=== PATIENT | male | born 1995 | race Hispanic/Latino ===

== ENCOUNTER 2018-12-13 19:48 | Emergency (ER) | payer OTHER ==
[~2018-12-13] VITALS: Ht 182.9 cm; Wt 113.4 kg
--- OUTSIDE RECORDS SUMMARY | 2018-12-13 19:51 | XMS REPORT | Continuity of Care Document ---
Author Author [facility] Interface Address Unknown Phone Unavailable Problems Problem Status Onset Date Classification Date Reported Comments Source Viral Gastroenteritis 01/30/2018 Problem 01/30/2018 [facility] Influenza-like Symptoms 01/30/2018 Problem 01/30/2018 [facility] Headache 01/30/2018 Problem 01/30/2018 [facility] Viral gastroenteritis 01/30/2018 Diagnosis 01/30/2018 [facility] Influenza-like symptoms 01/30/2018 Diagnosis 01/30/2018 [facility] Body mass index 30+ - obesity 01/30/2018 Diagnosis 01/30/2018 [facility] Viral upper respiratory tract infection 12/05/2017 Diagnosis 12/05/2017 [facility] Throat symptom 12/05/2017 Diagnosis 12/05/2017 [facility] Acute Sinusitis Problem 12/05/2017 [facility] Allergic Rhinitis Problem 12/05/2017 [facility] Gastroenteritis Problem 12/05/2017 [facility] Medications Medication Details Route Status Patient Instructions Ordering Provider Order Date Source Naproxen 500 MG Delayed Release Oral Tablet [Naprosyn] EC-Naprosyn 500 mg tablet,delayed release Take 1 tablet twice a day by oral route as needed for 7 days. Active [facility] Ondansetron 8 MG Oral Tablet ondansetron HCl 8 mg tablet Take 1 tablet every 8 hours by oral route as needed for 2 days. Active [facility] Brompheniramine Maleate 0.4 MG/ML / Dextromethorphan Hydrobromide 2 MG/ML / Pseudoephedrine Hydrochloride 6 MG/ML Oral Solution [Bromfed DM] Bromfed DM 2 mg-30 mg-10 mg/5 mL syrup Take 10 mL every 4-6 hours by oral route as needed for 6 days. Active [facility] Allergies, Adverse Reactions, Alerts Substance Category Reaction Severity Reaction type Status Date Reported Comments Source Immunizations Immunization Date Given Site Status Last Updated Comments Source meningococcal MCV4P 06/21/2014 completed [facility] Results Order Name Results Value Reference Range Date Interpretation Comments Source Influenza A negative 01/30/2018 [facility] Influenza B negative 01/30/2018 [facility] RESULT negative 12/05/2017 [facility] SWAB LOCATION Left and Right tonsillar pillars 12/05/2017 [facility] Influenza A negative 12/05/2017 [facility] Influenza B negative 12/05/2017 [facility] Vital Signs Vital Sign Value Date Comments Source Diastolic (mm Hg) 72 01/30/2018 [facility] Height 73 01/30/2018 [facility] Systolic (mm Hg) 118 01/30/2018 [facility] Weight 250 01/30/2018 [facility] Diastolic (mm Hg) 72 12/05/2017 [facility] Height 73 12/05/2017 [facility] Systolic (mm Hg) 114 12/05/2017 [facility] Weight 240 12/05/2017 [facility] Encounters Location Location Details Encounter Type Encounter Number Reason For Visit Attending Provider ADM Date DC Date Status Source [place] - [facility] - [id number] Diana-C: [address] [place] [address], Ph. [id number] Ita Valle 12/05/2017 [facility] [place] [facility] - [id number] DianaP-C: [address] [place] [address], Ph. [id number] Ita Valle 01/30/2018 [facility] Procedures Procedure Code Date Perfomer Comments Source
--- OUTSIDE RECORDS SUMMARY | 2018-12-13 19:51 | XMS REPORT | Encounter Summary ---
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 Viral upper respiratory tract infection Bromfed DM 2 mg-30 mg-10 mg/5 mL syrup rapid flu (A+B) 2. Throat symptom rapid strep group A, throat Discussion Note Pt is in NAD; Verbalizes understanding of all instructions with no questions at this time. Patient educational handouts: No information available. Plan of Care Patient Instructions Take Bromfed DM for cough as directed. Take fluticasone as needed for nasal and ear congestion. [place] one spray in each nostril twice a day. Take a warm, steamy shower, blow your nose thereafter, and spray in each nostril. Tilt your head up for about 10 seconds and breath through your mouth. Do not sniff or snort the medication in or else the medication will go to your throat and not be absorbed appropriately. Alternate with Ibuprofen and acetaminophen every 4hrs as needed for pain/fever/headache. Proper hydration and rest. Return to work/school if free of fever for 24-hrs. Do not share any utensils/cups, no kissing, recommend hand washing after coughing/sneezing/blowing nose and cover face when you do so. Take medications as prescribed. Return to clinic or follow up with your PCP within 2-3 days if symptoms worsen as discussed. Reminders Provider Appointments None recorded. Lab Rapid Flu (A+B) 12/05/2017 [facility] Rapid Strep Group a, Throat 12/05/2017 [facility] Referral None recorded. Procedures None recorded. Surgeries None recorded. Imaging None recorded. Medications Name Start Date Bromfed DM 2 mg-30 mg-10 mg/5 mL syrup Take 10 mL every 4-6 hours by oral route as needed for 6 days. Medications Administered None recorded. Vitals Height Weight BMI Blood Pressure 6 ft 1 in 240 lbs 31.7 kg/m2 114/72 mm[Hg] Lab Results Date Name Specimen Result Interpretation Description Value Range Status Address Rapid Strep Group a, Throat Result negative [facility]: [facility] Swab Location Left and Right tonsillar pillars [facility]: [facility] Rapid Flu (A+B) Influenza a negative [facility]: [facility] Influenza B negative [facility]: [facility] Allergies Code Code System Name Reaction Severity Status Onset NKDA Problems Name Status Onset Date Source Acute Sinusitis Active Encounter Allergic Rhinitis Active Encounter Gastroenteritis Active Encounter Procedures None recorded. Vaccine List Vaccine Type meningococcal MCV4P 06/21/2014 Social History Smoking Status Never Smoker Past Encounters 12/05/2017 Viral Upper Respiratory Tract Infection; Throat Symptom Ita Valle [facility]: [address] [place] [address], Ph. History of Present Illness [id number]-Xsw Reported By: Patient HPI: Quality: symptoms worse during the day. Duration: 4 days. Severity: subjective temperature. Context: no ill contacts, no tick/insect bites, no recent travel, no new medications. Associated Symptoms: no fever/chills, no headache, no muscle aches, no rash, no lethargy, cough, nasal passage blockage (stuffiness), nasal discharge; scratchy throat. Modifying Factors nothing gives relief Review of Systems:ROS as noted in the HPI Review of Systems Basic Reported By: Patient Physical Exam Adult Basic, 14-21 Yr Male, Adult Female Complete, Adult Male Complete Reported By: Patient Constitutional: General Appearance: healthy-appearing, well-nourished, well-developed. Level of Distress: NAD. Ambulation: ambulating normally Psychiatric: Mental Status: active and alert. Orientation: to time, to place, to person Avz-Npbq-Vnmzo-Throat: Ears: no lesions on external ear, no outer ear tenderness, EACs clear, TMs clear. Hearing: no hearing loss. Nose: no lesions on external nose, nares patent, no septal deviation, nasal passages clear, no sinus tenderness, nasal discharge--rhinorrhea, post nasal drip. Lips, Teeth, and Gums: no mouth or lip ulcers, no bleeding gums, normal dentition. Oropharynx: moist mucous membranes, no erythema, no exudates, tonsils not enlarged Neck: Lymph Nodes: no cervical LAD Lungs: Respiratory effort: no dyspnea, no tachypnea, no use of accessory muscles, no intercostal retractions. Auscultation: breath sounds normal Cardiovascular: Heart Auscultation: RRR, no murmurs Neurologic: Gait and Station: normal gait, normal station
--- OUTSIDE RECORDS SUMMARY | 2018-12-13 19:51 | XMS REPORT | Encounter Summary ---
Author Organization Unknown Address [address] [place] [address] Phone [phone] Care Team Providers Care Expressive Therapist Name Role Phone Suzie Hutson 3 [phone] Reason for Visit Medical Complaint Instructions 1. Viral gastroenteritis ondansetron HCl 8 mg tablet 2. Influenza-like symptoms rapid flu (A+B) 3. Headache headache: care instructions EC-Naprosyn 500 mg tablet,delayed release 4. Body mass index 30+ - obesity Discussion Note Pt is in NAD; Verbalizes understanding of all instructions with no questions at this time. Plan of Care Patient Instructions Stay hydrated with pedialyte or gatorade, eat a liquid diet for the first four hours. Stay away from fried and spicy foods until symptoms resolve. If you do experience improvement in your symptoms within the next four hours, advance yourself to a carbohydrate-rich diet such as white rice, white bread, and crackers. Within the next four hours thereafter, you can advance to lean meats such as chicken, fish, and turkey. Four hours thereafter if symptoms do improve, then advance to a regular diet. Take over the counter imodium for diarrhea as per package insert. Take ondansetron for nausea and vomiting as per package insert for headache. Follow up with your PCP within 2-3 should symptoms worsen as discussed. In case of an emergency call 911 or go to nearest ER. Recommend follow a low sodium/fat/carb diet and exercise 30-45 mins/d 3-4 days a week once symptoms resolve. Reminders Provider Appointments None recorded. Lab Rapid Flu (A+B) 01/30/2018 [facility] Referral None recorded. Procedures None recorded. Surgeries None recorded. Imaging None recorded. Medications Name Start Date EC-Naprosyn 500 mg tablet,delayed release Take 1 tablet twice a day by oral route as needed for 7 days. ondansetron HCl 8 mg tablet Take 1 tablet every 8 hours by oral route as needed for 2 days. Medications Administered None recorded. Vitals Height Weight BMI Blood Pressure 6 ft 1 in 250 lbs 33 kg/m2 118/72 mm[Hg] Lab Results Date Name Specimen Result Interpretation Description Value Range Status Address Rapid Flu (A+B) Influenza a negative [facility]: [facility] Influenza B negative [facility]: [facility] Allergies Code Code System Name Reaction Severity Status Onset NKDA Problems Name Status Onset Date Source Viral Gastroenteritis Active 01/30/2018 Influenza-like Symptoms Active 01/30/2018 Headache Active 01/30/2018 Procedures None recorded. Vaccine List Vaccine Type meningococcal MCV4P 06/21/2014 Social History Smoking Status Never Smoker Past Encounters 01/30/2018 Viral Gastroenteritis; Influenza-like Symptoms; Headache; Body Mass Index 30+ - Obesity Ita Valle, [facility]: [address] [place] [address], Ph. History of Present Illness Lsqxct-Tcofptgp-Celizkhq / Abdominal Pain Reported By: Patient HPI: Quality: watery, intermittent. Severity: moderate. Duration: present for < 1 week, symptoms last for how long?. Onset/Timing: worse with meals, gradual onset, 4-10 times a day. Context: no one else with similar symptoms, no recent camping, no recent picnic, no possible food sources, no recent travel. Alleviating factors: better with fasting. Aggravating factors: eating. Associated Symptoms: no abdominal pain, no excess gas, no fever/chills, no rash, no joint pain, no weight loss, no vomiting, no heartburn, no blood in stool, no mucus in stool, no black or tarry stools, no weakness, no nutrient deficiency, no feeling of fullness/mass in throat, no muscle aches, no bitter taste in the mouth, no difficulty swallowing (dysphagia), nausea, headache; body aches and watery diarrhea Headache Reported By: Patient HPI: Location: frontal. Quality: not the worst headache ever, similar to previous headaches. Severity: moderate, pain level 6/10. Duration: intermittent. Onset/Timing: gradual, still present. Context: not related to trauma. Modifying factors: rest; Has not taken any meds. Associated Symptoms: no fever/chills, no muscle aches, no vomiting, no sensitivity to light, tearing/watery eyes, no confusion, no slurred speech, no preceeding aura, no double vision, normal feeling/sensation, no motor paralysis, no dizziness, no sleep disturbances, no nosebleeds, no hoarseness, no sore throat, no hearing loss, headache, nausea; body aches and watery diarrhea Review of Systems:ROS as noted in the HPI Review of Systems Basic Reported By: Patient Physical Exam Adult Basic, 14-21 Yr Male, Adult Male Complete Reported By: Patient Constitutional: General Appearance: obese. Level of Distress: NAD. Ambulation: ambulating normally Psychiatric: Mental Status: active and alert. Orientation: to time, to place, to person Eyes: Lids and Conjunctivae: non-injected, no discharge, no pallor. Pupils: PERRLA, equal size, round, reactive to light. Corneas: grossly intact. EOM: EOMI, normal cover/uncover test. Lens: clear. Vision: peripheral vision grossly intact Igp-Zlpr-Jppqv-Throat: Ears: no lesions on external ear, no outer ear tenderness, EACs clear, TMs clear, TM mobility normal. Nose: no lesions on external nose, nares patent, no septal deviation, nasal passages clear, no sinus tenderness, no nasal discharge. Lips, Teeth, and Gums: no mouth or lip ulcers, no bleeding gums, normal dentition. Oropharynx: moist mucous membranes, no erythema, no exudates, tonsils not enlarged Neck: Neck: supple. Lymph Nodes: no cervical LAD Lungs: Respiratory effort: no dyspnea, no tachypnea, no use of accessory muscles, no intercostal retractions. Auscultation: breath sounds normal, good air movement Cardiovascular: Heart Auscultation: RRR, no murmurs Neurologic: Gait and Station: normal gait, normal station. Cranial Nerves: grossly intact. Sensation: grossly intact. Reflexes: deep tendon reflexes 2+ bilaterally throughout Abdomen: Palpation: non-distended, no guarding, no tenderness. Liver: non-tender, no hepatomegaly. Spleen: non-tender, no splenomegaly. Hernia: no palpable hernias. Bowel Sounds: high-pitched. Inspection and Palpation: soft, no rebound tenderness, no masses, no CVA tenderness
[2018-12-13] MEDS ORDERED: IBUPROFEN 600 MG TAB PO STA (19:55)
[2018-12-13] MEDS ORDERED: IBUPROFEN 200 MG TAB ONE (19:58)
[2018-12-13] MEDS ORDERED: IBUPROFEN 400 MG TAB ONE (20:01)
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
== END 2018-12-13 20:55 | disposition home or self-care (01) ==
LOC: ER 19:48
DX: S20.219A Contusion of unspecified front wall of thorax, initial encounter (principal); V43.52XA Car driver injured in collision with other type car in traffic accident, initial encounter; Y92.488 Other paved roadways as the place of occurrence of the external cause; L30.9 Dermatitis, unspecified; E66.9 Obesity, unspecified
CPT/HCPCS: 71046; 99283

== ENCOUNTER 2024-09-06 10:44 | Inpatient (IN) | payer OTHER ==
[2024-09-06] VITALS (8 sets, daily range): BP systolic 126–134; BP diastolic 67–79; PULSE 80–103; RESP 16–19; TEMP 97.7–98.4; O2SAT 98
[~2024-09-06] VITALS: Ht 182.9 cm; Wt 106.6 kg
[2024-09-06 11:18] LABS: BASOPHILS % 0.3 % (0.0-1.0); EOSINOPHILS # (AUTO) 0.1 (0.0-0.4); EOSINOPHILS % 0.3 % (0.0-6.0); HEMATOCRIT 49.6 % (38.2-49.6); LYMPHOCYTES % 20.3 % (18.0-39.1); MEAN CORPUSCULAR HEMOGLOBIN 30.5 pg (28-32); MEAN CORPUSCULAR HGB CONC 34.3 g/dL (31-35); MONOCYTES # (AUTO) 0.5 (0.2-0.8); MONOCYTES % 3.4 % (4.4-11.3); NEUTROPHILS # (AUTO) 11.1 (2.1-6.9); NEUTROPHILS % 75.4 % (38.7-80.0); PLATELET COUNT 273 x10e3/uL (140-360); RED BLOOD COUNT 5.57 x10e6/uL (4.3-5.7); RED CELL DISTRIBUTION WIDTH 12.4 % (11.7-14.4); WHITE BLOOD COUNT 14.73 x10e3/uL (4.8-10.8)
[2024-09-06 11:26] LABS: INR 0.94
[2024-09-06 11:27] LABS: PARTIAL THROMBOPLASTIN TIME 28.2 seconds (23.8-35.5)
[2024-09-06] MEDS: SODIUM CHLORIDE 0.9% 1000ML 1,000 ML IV STA (11:29)
[2024-09-06] MEDS: LORAZEPAM INJ 2 MG/ML VIAL IV ONE (11:30)
[2024-09-06] MEDS: DICYCLOMINE HCL 20 MG/2 ML VIAL IM ONE (11:30)
[2024-09-06] MEDS: ONDANSETRON HCL INJ 2MG/ML 2ML 2 MG/ML VIAL IV STA (11:30)
[2024-09-06 11:37] LABS: ALANINE AMINOTRANSFERASE 26 IU/L (0-55); ALBUMIN 4.6 g/dL (3.5-5.0); ALBUMIN/GLOBULIN RATIO 1.2 (0.8-2.0); ALKALINE PHOSPHATASE 77 IU/L (40-150); ANION GAP 23.3 mmol/L (8-16); BILIRUBIN,TOTAL 0.7 mg/dL (0.2-1.2); BLOOD UREA NITROGEN 17 mg/dL (7-26); BUN/CREATININE RATIO 17 (6-25); CALCIUM 9.8 mg/dL (8.4-10.2); CARBON DIOXIDE 14 mmol/L (22-29); CHLORIDE 105 mmol/L (98-107); CREATINE KINASE 101 IU/L (30-200); CREATININE, SERUM 0.98 mg/dL (0.72-1.25); EST GLOMERULAR FILTRATION RATE 108 ML/MIN (>=60); GLUCOSE 173 mg/dL (74-118); LIPASE 56 U/L (8-78); MAGNESIUM 2.2 MG/DL (1.3-2.1); SODIUM 139 mmol/L (136-145); TOTAL PROTEIN 8.3 g/dL (6.5-8.1)
[2024-09-06 11:38] LABS: POTASSIUM 3.3 mmol/L (3.5-5.1)
[2024-09-06 11:44] LABS: TROPONIN I < 0.001 ng/mL (0-0.300)
[2024-09-06] MEDS ORDERED: IOPAMIDOL 370 MG/ML 100 ML INFUS..BTL INJ ONE (11:44)
[2024-09-06 12:40] LABS: BILIRUBIN,URINE NEGATIVE (NEGATIVE); CLARITY,URINE CLEAR (CLEAR); COLOR,URINE YELLOW (YELLOW); GLUCOSE, URINE NEGATIVE (NEGATIVE); KETONES,URINE 1+ (NEGATIVE); LEUKOCYTE ESTERASE ,URINE NEGATIVE (NEGATIVE); NITRITE,URINE NEGATIVE (NEGATIVE); PH,URINE 5.5 (5 - 7); PROTEIN,URINE DIPSTICK NEGATIVE (NEGATIVE); URINE UROBILINOGEN 0.2 mg/dL (0.2 - 1)
[2024-09-06 12:42] LABS: BACTERIA,URINE FEW /HPF; EPITHELIAL CELLS,URINE FEW /LPF
[2024-09-06] MEDS ORDERED: PROMETHAZINE 12.5MG/ NACL 0.9% 12.5 MG/50 ML BAG IV PRN (13:15)
[2024-09-06] MEDS: METHYLPREDNISOLONE SOD SUCC 125 MG/2ML VIAL IV STA (13:19)
[2024-09-06] MEDS: SODIUM CHLORIDE 0.9% 1000ML 1,000 ML IV SCH (14:48)
[2024-09-06] MEDS ORDERED: RINVOQ30 MG (15:01)
[2024-09-06] MEDS ORDERED: [UNRECOGNIZED DRUG - OTHER] PO (15:01)
[2024-09-06] MEDS ORDERED: MECLIZINE HCL12.5 MG PO (15:01)
[2024-09-06] MEDS ORDERED: SERTRALINE HCL50 MG PO (15:01)
[2024-09-06] MEDS: ONDANSETRON HCL INJ 2MG/ML 2ML 2 MG/ML VIAL IV PRN (18:09)
[2024-09-06] MEDS: Morphine 4mg INJECTION 4 MG/ML INJ IV PRN (18:09)
[2024-09-07 05:44] LABS: BASOPHILS % 0.1 % (0.0-1.0); HEMATOCRIT 41.4 % (38.2-49.6); HEMOGLOBIN 13.8 g/dL (14.0-18.0); LYMPHOCYTES # (AUTO) 1.6 (1.0-3.2); LYMPHOCYTES % 14.1 % (18.0-39.1); MEAN CORPUSCULAR HEMOGLOBIN 30.7 pg (28-32); MEAN CORPUSCULAR HGB CONC 33.3 g/dL (31-35); MONOCYTES # (AUTO) 0.8 (0.2-0.8); MONOCYTES % 6.6 % (4.4-11.3); NEUTROPHILS # (AUTO) 8.9 (2.1-6.9); NEUTROPHILS % 78.8 % (38.7-80.0); PLATELET COUNT 184 x10e3/uL (140-360); RED CELL DISTRIBUTION WIDTH 12.8 % (11.7-14.4); WHITE BLOOD COUNT 11.35 x10e3/uL (4.8-10.8)
[2024-09-07 06:31] LABS: ALBUMIN 3.6 g/dL (3.5-5.0); ALBUMIN/GLOBULIN RATIO 1.1 (0.8-2.0); ANION GAP 12.1 mmol/L (8-16); BILIRUBIN,TOTAL 0.6 mg/dL (0.2-1.2); CALCIUM 8.6 mg/dL (8.4-10.2); CREATININE, SERUM 0.86 mg/dL (0.72-1.25); POTASSIUM 4.1 mmol/L (3.5-5.1); TOTAL PROTEIN 6.8 g/dL (6.5-8.1)
[2024-09-07] MEDS: PROMETHAZINE 12.5MG/ NACL 0.9% 12.5 MG/50 ML BAG IV ONE (07:32)
[2024-09-07 08:00] VITALS: BP 129/67; PULSE 80; RESP 18; TEMP 98.1; O2SAT 98
[2024-09-07 08:56] VITALS: BP 125/93; PULSE 73; RESP 20; TEMP 98.8; O2SAT 99
[2024-09-07 12:49] VITALS: BP 129/69; PULSE 51; RESP 20; TEMP 97.4; O2SAT 100
[2024-09-07] MEDS ORDERED: POLYETHYLENE GLYCOL 3350 17 GM PACK PO PRN (14:30)
[2024-09-07] MEDS ORDERED: ACETAMINOPHEN 325 MG TAB PO PRN (14:30)
[2024-09-07] MEDS ORDERED: HYDRALAZINE HCL 20 MG/ML VIAL IV PRN (14:30)
[2024-09-07] MEDS: DOCUSATE SODIUM 100 MG CAP PO SCH (15:36)
[2024-09-07 17:07] VITALS: BP 114/67; PULSE 67; RESP 18; TEMP 98.6; O2SAT 100
[2024-09-07] MEDS: SERTRALINE HCL 50 MG TAB PO SCH (17:55)
[2024-09-07 20:10] VITALS: PULSE 68; RESP 18; O2SAT 99
[2024-09-07] MEDS: MECLIZINE HCL 12.5 MG TAB PO SCH (20:38)
[2024-09-07 23:21] VITALS: BP 129/56; PULSE 65; RESP 18; TEMP 98.2; O2SAT 100
[2024-09-08] VITALS (8 sets, daily range): BP systolic 111–122; BP diastolic 55–72; PULSE 54–73; RESP 16–18; TEMP 96.7–98.4; O2SAT 97–100
[2024-09-08] MEDS: LEVOFLOXACIN 500MG/D5W 100ML 100 ML IV ONE (01:15)
[2024-09-08] MEDS: METOCLOPRAMIDE HCL 10 MG/2ML VIAL IV STA (02:39)
[2024-09-08 05:35] LABS: BASOPHILS % 0.4 % (0.0-1.0); EOSINOPHILS # (AUTO) 0.2 (0.0-0.4); EOSINOPHILS % 2.4 % (0.0-6.0); HEMATOCRIT 37.3 % (38.2-49.6); HEMOGLOBIN 12.6 g/dL (14.0-18.0); LYMPHOCYTES # (AUTO) 2.4 (1.0-3.2); LYMPHOCYTES % 33.1 % (18.0-39.1); MEAN CORPUSCULAR HEMOGLOBIN 31.2 pg (28-32); MEAN CORPUSCULAR HGB CONC 33.8 g/dL (31-35); MEAN CORPUSCULAR VOLUME 92.3 fL (81-99); MONOCYTES # (AUTO) 0.5 (0.2-0.8); MONOCYTES % 7.3 % (4.4-11.3); NEUTROPHILS % 56.7 % (38.7-80.0); PLATELET COUNT 154 x10e3/uL (140-360); RED BLOOD COUNT 4.04 x10e6/uL (4.3-5.7); RED CELL DISTRIBUTION WIDTH 13.1 % (11.7-14.4); WHITE BLOOD COUNT 7.12 x10e3/uL (4.8-10.8)
[2024-09-08] MEDS: METOCLOPRAMIDE HCL 10 MG/2ML VIAL IV SCH (05:44)
[2024-09-08 06:40] LABS: ALBUMIN 3.2 g/dL (3.5-5.0); ALBUMIN/GLOBULIN RATIO 1.2 (0.8-2.0); ANION GAP 10.5 mmol/L (8-16); BILIRUBIN,TOTAL 0.6 mg/dL (0.2-1.2); CALCIUM 8.2 mg/dL (8.4-10.2); CHOL/HDL RATIO 3.2 (3.9-4.7); CREATININE, SERUM 0.85 mg/dL (0.72-1.25); MAGNESIUM 1.9 MG/DL (1.3-2.1); PHOSPHORUS 2.5 MG/DL (2.3-4.7); POTASSIUM 3.5 mmol/L (3.5-5.1); TOTAL PROTEIN 5.9 g/dL (6.5-8.1)
[2024-09-08 07:05] LABS: THYROID STIMULATING HORMONE 2.274 uIU/mL (0.350-4.940)
[2024-09-08] MEDS: LEVOFLOXACIN 500MG/D5W 100ML 100 ML IV SCH (16:16)
[2024-09-09] VITALS: BP 117/59; PULSE 69; RESP 20; TEMP 97.6; O2SAT 100
[2024-09-09 06:24] LABS: ANION GAP 12.5 mmol/L (8-16); CALCIUM 8.6 mg/dL (8.4-10.2); CREATININE, SERUM 0.83 mg/dL (0.72-1.25); POTASSIUM 3.5 mmol/L (3.5-5.1)
[2024-09-09 08:33] VITALS: BP 117/66; PULSE 56; RESP 17; TEMP 97.9; O2SAT 100
[2024-09-09] MEDS: POTASSIUM CHLORIDE 10MEQ EA PO ONE (10:28)
[2024-09-09 11:45] VITALS: BP 111/58; PULSE 55; RESP 17; TEMP 97.7; O2SAT 100
[2024-09-09] MEDS ORDERED: PROTONIX20 MG PO (14:11)
[2024-09-09] MEDS ORDERED: ONDANSETRON ODT4 MG PO (14:11)
[2024-09-09] MEDS ORDERED: LEVOFLOXACIN250 MG PO (14:11)
[2024-09-09] MEDS ORDERED: FLAGYL375 MG PO (14:11)
[2024-09-09 15:32] VITALS: PULSE 63; RESP 20; O2SAT 99
[2024-09-18] MEDS ORDERED: VITAMIN D31 ML (15:19)
== END 2024-09-09 15:40 | disposition home or self-care (01) | DRG 386 ==
LOC: ER 10:50 → ERHOLD 13:18 → MED/SURG2 14:24
PROVIDERS: ADMIT Internal Medicine; ATTEND Internal Medicine
DX: K50.918 Crohn's disease, unspecified, with other complication (principal); N39.0 Urinary tract infection, site not specified; K52.9 Noninfective gastroenteritis and colitis, unspecified; E83.41 Hypermagnesemia; R13.10 Dysphagia, unspecified; R11.2 Nausea with vomiting, unspecified; E86.0 Dehydration; R00.0 Tachycardia, unspecified; R73.9 Hyperglycemia, unspecified; K62.89 Other specified diseases of anus and rectum; E87.6 Hypokalemia; K76.0 Fatty (change of) liver, not elsewhere classified; L30.9 Dermatitis, unspecified; R53.81 Other malaise; R25.2 Cramp and spasm; R42 Dizziness and giddiness; E66.9 Obesity, unspecified; Z68.31 Body mass index [BMI] 31.0-31.9, adult; F41.9 Anxiety disorder, unspecified; B96.20 Unspecified Escherichia coli [E. coli] as the cause of diseases classified elsewhere; Z83.3 Family history of diabetes mellitus
CPT/HCPCS: 36415; 71045; 74177; 76705; 80048; 80053; 80061; 81001; 82550; 83036; 83690; 83735; 84100; 84439; 84443; 84484; 85025; 85610; 85730; 86140; 87086; 87186; 93005; 94799; 99284; J1956; J2060; J2270; J2405; J2470; J2543; J2765; J2919; J7030; Q9967

== ENCOUNTER → 2024-09-21 | Day surgery (SDC) | payer OTHER ==
[~2024-09-21] MED LIST: FLAGYL375 MG PO; KETAMINE HCL INJ 50 MG/ML 10 ML VIAL ONE; LEVOFLOXACIN250 MG PO; MECLIZINE HCL12.5 MG PO; METOCLOPRAMIDE HCL 10 MG/2ML VIAL ONE; ONDANSETRON ODT4 MG PO; PROPOFOL IV EMULSION 10 MG/ML 20 ML VIAL ONE; PROTONIX20 MG PO; RINVOQ30 MG; SERTRALINE HCL50 MG PO; VITAMIN D31 ML; [UNRECOGNIZED DRUG - OTHER] PO
[2024-09-21] MEDS: LACTATED RINGER'S 1,000 ML ONE (13:23)
[2024-09-21 15:57] VITALS: TEMP 97.6
[2024-09-21 16:25] VITALS: BP 109/71; PULSE 60; RESP 16; O2SAT 97
[2024-09-21 16:46] LABS: WBC,FECAL (FECAL LACTOFERRIN) NEGATIVE (NEGATIVE)
[2024-09-22 09:27] LABS: C-REACTIVE PROTEIN 2 mg/L (0-10)
[2024-09-24 08:15] LABS: ENDOMYSIAL ANTIBODIES, IGA Negative (Negative)
[2024-09-24 09:20] LABS: IMMUNOGLOBULIN A 276 mg/dL (90-386); TISSUE TRANSGLUTAMINASE IGA AB <2 U/mL (0-3)
== END | disposition home or self-care (01) ==
LOC: OR 13:14
PROVIDERS: ATTEND Internal Medicine Gastroenterology
DX: K29.70 Gastritis, unspecified, without bleeding (principal); K31.7 Polyp of stomach and duodenum; K52.9 Noninfective gastroenteritis and colitis, unspecified; K29.80 Duodenitis without bleeding; K20.90 Esophagitis, unspecified without bleeding; K21.9 Gastro-esophageal reflux disease without esophagitis; K31.89 Other diseases of stomach and duodenum; K63.89 Other specified diseases of intestine; K62.89 Other specified diseases of anus and rectum; K64.8 Other hemorrhoids; Z71.3 Dietary counseling and surveillance; E66.01 Morbid (severe) obesity due to excess calories; F32.A Depression, unspecified; Z79.899 Other long term (current) drug therapy; F41.0 Panic disorder [episodic paroxysmal anxiety]; Z68.30 Body mass index [BMI] 30.0-30.9, adult
CPT/HCPCS: 43239; 45380; 82784; 83516; 83630; 83993; 86140; 86256; 87045; 87177; 87324; 87328; 87449; J2470; J7121; J2765